=== PATIENT | male | born 1980 | race American Indian/Alaskan Native ===

== ENCOUNTER 2018-03-10 02:05 | Emergency (ER) | payer OTHER ==
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
[2018-03-10] MEDS ORDERED: Ketorolac 60 MG/2 ML SDV IM ONE (02:16)
[2018-03-10] MEDS ORDERED: Acetaminophen/HYDROcodone 325-5 MG Tab PO ONE (03:10)
[2018-03-10 03:33] VITALS: BP 150/99
--- NOTE | 2018-03-10 15:43 | CR ---
EXAM DATE: 03/10/18 PATIENT'S AGE: 37 Patient: NAMITA ORELLANA Facility: [place], [place] Site . Site : 1980 Study: XRay Extremity Left FOREARM [id number]/12/2018 2:38:15 AM Ordering Physician: Merle Shaffer Final Report: INDICATION: Left arm injury. COMPARISON: None. FINDINGS/IMPRESSION: Left forearm, 2 views. Acute transverse fracture of the midshaft of the left ulna with 5 millimeters of anterolateral displacement of the distal fragment. Acute nondisplaced transverse fracture of the midshaft of the left radius. Forearm soft tissue swelling. Dictated by Osmin Fraser MD @ 03/10/2018 3:03:19 AM Dictated by: Osmin Fraser MD @ 03/10/2018 03:03:25 (Electronic Signature) Report Signed by Proxy. ADA
== END 2018-03-10 03:37 | disposition home or self-care (01) ==
LOC: MW.ED 02:05
DX: S52.222A Displaced transverse fracture of shaft of left ulna, initial encounter for closed fracture (principal); S52.325A Nondisplaced transverse fracture of shaft of left radius, initial encounter for closed fracture; Y04.2XXA Assault by strike against or bumped into by another person, initial encounter
CPT/HCPCS: 73090; 96372; 99283; A9270; J1885

== ENCOUNTER 2020-08-02 20:31 | Emergency (ER) | payer OTHER ==
[2020-08-02] MEDS ORDERED: Amoxicillin 500 MG Cap PO ONE ×2 (21:58→22:01)
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
[2020-08-03 03:53] VITALS: BP 140/85; PULSE 92
== END 2020-08-02 22:56 | disposition home or self-care (01) ==
LOC: MW.ED 20:31
DX: H66.91 Otitis media, unspecified, right ear (principal); H60.501 Unspecified acute noninfective otitis externa, right ear; R00.0 Tachycardia, unspecified; E66.9 Obesity, unspecified; Z68.29 Body mass index [BMI] 29.0-29.9, adult
CPT/HCPCS: 99282; A9270

== ENCOUNTER 2020-08-11 02:16 | Emergency (ER) | payer OTHER ==
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
[2020-08-11] MEDS ORDERED: Ketorolac 30 MG/ML SDV IM ONE (04:04)
--- NOTE | 2020-08-11 04:55 | US ---
CLINICAL HISTORY: Pains following TECHNIQUE: A compression venous ultrasound exam was performed of the right lower extremity using squires-scale imaging, color Doppler and spectral Doppler analysis. FINDINGS: Sonographic imaging of the right lower extremity demonstrates normal compressibility and color Doppler venous blood flow within the common femoral vein, deep femoral vein, and the proximal greater saphenous vein. Within the thigh, the femoral vein is patent and compressible. At a lower level, the popliteal and posterior tibial veins also show normal compressibility and color Doppler venous blood flow. Limited imaging of the contralateral groin demonstrates a normal spectral waveform and color Doppler venous blood flow within the left common femoral vein. 4.7 x 0.6 x 1.7 centimeter fluid collection right proximal medial calf. Soft tissue edema. IMPRESSION: No evidence of deep vein thrombosis within the right lower extremity. Small fluid collection measuring 4.7 x 0.6 x 1.7 centimeters proximal medial right calf. Dictated by Shana Hernandez MD @ Aug 11 2020 4:52AM Signed by Dr. Shana Hernandez @ Aug 11 2020 4:54AM
[2020-08-11 05:10] VITALS: BP 106/51; PULSE 81
== END 2020-08-11 05:21 | disposition home or self-care (01) ==
LOC: MW.ED 02:16
DX: S86.911A Strain of unspecified muscle(s) and tendon(s) at lower leg level, right leg, initial encounter (principal); E66.9 Obesity, unspecified; Z68.29 Body mass index [BMI] 29.0-29.9, adult; X58.XXXA Exposure to other specified factors, initial encounter
CPT/HCPCS: 93971; 96372; 99283; J1885

== ENCOUNTER 2020-12-27 13:59 | Emergency (ER) | payer MEDICAID | END 2020-12-27 15:52 | disposition left against medical advice (07) | LOC: MW.ED 13:59 | DX: Z53.21 Procedure and treatment not carried out due to patient leaving prior to being seen by health care provider (principal) ==

== ENCOUNTER 2021-10-25 02:28 | Emergency (ER) | payer MEDICAID ==
[2021-10-25] MEDS ORDERED: Dexamethasone 10 MG/ML SDV PO ONE (02:47)
[2021-10-25 03:08] VITALS: BP 113/70; PULSE 105
== END 2021-10-25 03:12 | disposition home or self-care (01) ==
LOC: MW.ED 02:28
DX: J02.0 Streptococcal pharyngitis (principal)
CPT/HCPCS: 99282; J8540